=== PATIENT | male | born 1995 | race Caucasian/White ===

== ENCOUNTER 2018-10-16 06:55 | Emergency (ER) | payer BC ==
--- NOTE | 2018-10-16 08:14 | ER Document Report ---
ED Neck/Back Problem - General Chief Complaint: Back Pain Stated Complaint: BACK PAIN Time Seen by Provider: 10/16/18 07:40 Notes: 23-year-old male presents to the ER complaining of low back pain. The patient stated he is been bothering him for the last several days. The patient stated he has had back pain for several years. It comes and goes. 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 He has not established with a primary care physician yet after his new job. The patient complains of aching low back pain he rates as moderate to severe worse with movement. Denies any numbness or tending to his lower extremities denies any saddle paresthesias denies any problems with urination or defecation. Denies any weakness of his legs. Denies any new falls or trauma denies hematuria or dysuria. He describes the pain as aching. TRAVEL OUTSIDE OF THE [place] IN LAST 30 DAYS: No - Related Data Allergies/Adverse Reactions: No Known Allergies Allergy (Verified 10/16/18 07:34) Past Medical History - Social History Smoking Status: Unknown if Ever Smoked Family History: None Patient has suicidal ideation: No Patient has homicidal ideation: No Renal/ Medical History: Denies: Hx Peritoneal Dialysis Review of Systems - Review of Systems Constitutional: denies: Chills, Fever Genitourinary: denies: Dysuria, Flank pain, Hematuria Musculoskeletal: Back pain Neurological/Psychological: denies: Headaches -: Yes All other systems reviewed and negative Physical Exam - Vital signs Vitals: Temp Pulse Resp BP Pulse Ox 97.9 F 70 18 125/75 97 10/16/18 06:59 10/16/18 06:59 10/16/18 06:59 10/16/18 06:59 10/16/18 06:59 - Notes Notes: GENERAL_APPEARANCE: well_nourished, alert, cooperative, no_acute_distress, no_obvious_discomfort. VITALS: reviewed, see vital signs table. HEAD: no_swelling\tenderness on the head. EYES: PERRL, EOMI, conjunctiva_clear. NOSE: no_nasal_discharge. MOUTH: (-)decreased moisture. THROAT: no_tonsilar_inflammation, no_airway_obstruction. no_lymphadenopathy NECK: supple, no_neck_tenderness, (-)thyromegaly. BACK: 5 L4 paraspinal_back_tenderness. CHEST_WALL: no_chest_tenderness. LUNGS: no_wheezing, no_rales, no_rhonchi, (-)accessory muscle use, good air exchange bilateral. HEART: normal_rate, normal_rhythm, normal_S1, normal_S2, (-)S3, (-)S4, no_murmur, no_rub. ABDOMEN: normal_BS, soft, no_abd_tenderness, (-)guarding, (-)rebound, no_organomegaly, no_abd_masses. EXTREMITIES: strength 5/5 in all_extremities, good pulses in all_extremities, no_swelling\tenderness in the extremities, no_edema. SKIN: warm, dry, good_color, no_rash. MENTAL_STATUS: speech_clear, oriented_X_3, normal_affect, responds_appropriately to questions. NEURO: Neg Motor or Sensory Deficits on exam, CN 2-12 intact, DTR 2+ symmetric x 4, No cerbellar signs Course - Re-evaluation Re-evalutation: 10/16/18 08:12 Patient has a history of chronic back pain over the last several years he has had an exacerbation the last 2 days the patient will be placed on NSAIDs and Flexeril. The patient will need to establish a primary care physician patient does not have any saddle paresthesias no foot drop no motor weakness no bowel b ladder dysfunction or anything to suggest cauda equina syndrome. There is no history of IV drug abuse no fever no chills. Nothing red flag of concern. - Vital Signs Vital signs: Temp Pulse Resp BP Pulse Ox 97.9 F 70 18 125/75 97 10/16/18 06:59 10/16/18 06:59 10/16/18 06:59 10/16/18 06:59 10/16/18 06:59 Discharge - Discharge Clinical Impression: Low back pain Qualifiers: Chronicity: acute Back pain laterality: bilateral Sciatica presence: without sciatica Qualified Code(s): M54.5 - Low back pain Condition: Good Disposition: HOME, SELF-CARE Instructions: Low Back Pain ([facility]) Prescriptions: Cyclobenzaprine HCl [Flexeril 10 mg Tablet] 10 mg PO TIDP PRN #15 tab PRN Reason: Diclofenac Sodium [Voltaren] 75 mg PO BID PRN #20 tablet. PRN Reason: Pain Scale Of 5
[2018-10-16 08:33] VITALS: BP 128/70
== END 2018-10-16 08:33 | disposition home or self-care (01) ==
LOC: ER 06:55
DX: M54.5 Low back pain (principal)
CPT/HCPCS: 99283

== ENCOUNTER 2019-08-09 16:13 | Emergency (ER) | payer BC, OTHER ==
--- NOTE | 2019-08-09 17:08 | ER Document Report ---
ED Medical Screen (RME) - General Chief Complaint: Testicular Pain Stated Complaint: TESTICULAR PAIN Time Seen by Provider: 08/09/19 17:06 Mode of Arrival: Ambulatory Information source: Patient Notes: Is a 23-year-old male who feels as though he has a swollen lymph node to the left groin. Should be noted that he had a similar episode with a lymph node on the right groin that year and a half ago while stationed up in [place] and went up needing to be admitted with multiple tests to sort through the cause which has not really been identified. The discomfort to this area has brought h im to his knees just prior to arrival and his had to help him up. I greeted and performed a rapid initial assessment of this patient. Comprehensive ED assessment and evaluation of the patient, analysis of test results and completion of the medical decision making process will be conducted by additional ED providers. TRAVEL OUTSIDE OF THE [place] IN LAST 30 DAYS: No - Related Data Allergies/Adverse Reactions: No Known Allergies Allergy (Verified 10/16/18 07:34) Past Medical History Renal/ Medical History: Denies: Hx Peritoneal Dialysis Physical Exam - Vital signs Vitals: Temp Pulse Resp BP Pulse Ox 98.6 F 73 16 135/74 H 98 08/09/19 16:33 08/09/19 16:33 08/09/19 16:33 08/09/19 16:33 08/09/19 16:33 Course - Vital Signs Vital signs: Temp Pulse Resp BP Pulse Ox 98.6 F 73 16 135/74 H 98 08/09/19 16:33 08/09/19 16:33 08/09/19 16:33 08/09/19 16:33 08/09/19 16:33
[2019-08-09 17:42] LABS: ABSOLUTE BASOPHILS # (AUTO) 0.1 10^3/uL (0.0-0.2); ABSOLUTE EOSINOPHILS # (AUTO) 0.4 10^3/uL (0.0-0.6); ABSOLUTE LYMPHOCYTES (AUTO) 2.1 10^3/uL (0.5-4.7); ABSOLUTE MONOCYTES (AUTO) 0.7 10^3/uL (0.1-1.4); ABSOLUTE NEUT (AUTO) 3.8 10^3/uL (1.7-8.2); BASOPHILS % (AUTO) 0.7 % (0-2); EOSINOPHILS % (AUTO) 6.3 % (0-6); HEMOGLOBIN 15.9 g/dL (13.5-17.0); LYMPHOCYTES % (AUTO) 29.1 % (13-45); MEAN CORPUSCULAR HEMOGLOBIN 29.7 pg (27.0-33.4); MEAN CORPUSCULAR HGB CONC 34.5 g/dL (32.0-36.0); MEAN CORPUSCULAR VOLUME 86 fl (80-97); MONOCYTES % (AUTO) 9.8 % (3-13); PLATELET COUNT 281 10^3/uL (150-450); RED BLOOD COUNT 5.35 10^6/uL (4.35-5.55); RED CELL DISTRIBUTION WIDTH 12.7 % (11.5-14.0); SEGMENTED NEUTROPHILS % (AUTO) 54.1 % (42-78); TOTAL CELLS COUNTED % (AUTO) 100 %; WHITE BLOOD COUNT 7.1 10^3/uL (4.0-10.5)
[2019-08-09 17:46] LABS: AMORPHOUS SEDIMENT,URINE TRACE /HPF; APPEARANCE,URINE CLEAR; BILIRUBIN,URINE NEGATIVE (NEGATIVE); COLOR,URINE YELLOW; GLUCOSE, URINE NEGATIVE (NEGATIVE); KETONES,URINE NEGATIVE (NEGATIVE); LEUKOCYTE ESTERASE,URINE NEGATIVE (NEGATIVE); NITRITE,URINE NEGATIVE (NEGATIVE); PROTEIN,URINE NEGATIVE (NEGATIVE); URINE SPECIFIC GRAVITY 1.028; UROBILINOGEN,URINE NEGATIVE mg/dL (<2.0)
[2019-08-09 17:50] LABS: ALBUMIN 4.8 g/dL (3.5-5.0); ALKALINE PHOSPHATASE 68 U/L (38-126); ANION GAP 7 (5-19); ASPARTATE AMINO TRANSFERASE 32 U/L (17-59); BILIRUBIN,TOTAL 0.4 mg/dL (0.2-1.3); BLOOD UREA NITROGEN 18 mg/dL (7-20); CALCIUM 9.5 mg/dL (8.4-10.2); CARBON DIOXIDE 28 mmol/L (22-30); CHLORIDE 103 mmol/L (98-107); GLUCOSE 99 mg/dL (75-110); POTASSIUM 4.2 mmol/L (3.6-5.0); TOTAL PROTEIN 7.8 g/dL (6.3-8.2)
--- NOTE | 2019-08-09 18:48 | ER Document Report ---
ED GI/ - General Chief Complaint: Groin Pain Stated Complaint: TESTICULAR PAIN Time Seen by Provider: 08/09/19 17:06 Primary Care Provider: CAROLINA,KASEY [Primary Care Provider] - Follow up as needed Mode of Arrival: Ambulatory Notes: 23-year-old man presents to the emergency department with a complaint of pain in the left inguinal region. Apparently has been having pain for the past 3 days, today the pain became severe and he has presented to the emergency department for evaluation. He denies pain in the testicular region or penile discharge or dysuria. He notes pain in the groin area and denies a known injury. TRAVEL OUTSIDE OF THE [place] IN LAST 30 DAYS: No - Related Data Allergies/Adverse Reactions: No Known Allergies Allergy (Verified 10/16/18 07:34) Past Medical History - General Information source: Patient - Social History Smoking Status: Never Smoker Family History: None Patient has homicidal ideation: No Renal/ Medical History: Denies: Hx Peritoneal Dialysis Review of Systems - Review of Systems Notes: Constitutional: Negative for fever. HENT: Negative for sore throat. Eyes: Negative for visual changes. Cardiovascular: Negative for chest pain. Respiratory: Negative for shortness of breath. Gastrointestinal: Negative for abdominal pain, vomiting or diarrhea. Genitourinary: Negative for dysuria. Musculoskeletal: + left inguinal tenderness Skin: Negative for rash. Neurological: Negative for headaches, weakness or numbness. 10 point ROS negative except as marked above and in HPI. Physical Exam - Vital signs Vitals: Temp Pulse Resp BP Pulse Ox 98.6 F 73 16 135/74 H 98 08/09/19 16:33 08/09/19 16:33 08/09/19 16:33 08/09/19 16:33 08/09/19 16:33 - Notes Notes: PHYSICAL EXAMINATION: Physical Exam: General: Well-nourished well-developed 23-year-old male in no acute distress HEENT: NC/AT, pupils equal round and reactive to light, MM moist,nares clear, oropharynx clear, airway patent Neck: supple, no adenopathy, no masses. Good range of motion Lungs: clear, no wheezing, no rales no rhonchi CVS: Regular rate and rhythm no murmur gallop or rub Abdomen: Soft, active, nontender, no masses, no hepatosplenomegaly Ext: Tenderness left inguinal region with + small lymph nodes. Neuro: Alert and responsive, moving all 4 extremities on command, cranial nerves intact, no focal findings Skin: Intact no open lesions, no rash PSYCH: Normal mood, normal affect. Course - Re-evaluation Re-evalutation: 08/09/19 20:15 I have explained to the patient that because of the pain over the left femoral artery/inguinal area and pulsating discomfort, a CTA of the pelvis was ordered. You have voiced you will go to the [facility] for evaluation since you do not want to pay the cost at this hospital. It is your choice in your prerogative and have explained to the patient that his symptoms do not appear to be unstable. If they are worsening or if he has other concerns do not hesitate to return to the emergency department. The patient understands this plan and is leaving at this time. - Vital Signs Vital signs: Temp Pulse Resp BP Pulse Ox 98.4 F 74 16 137/93 H 98 08/09/19 20:15 08/09/19 20:15 08/09/19 20:15 08/09/19 20:15 08/09/19 20:15 - Laboratory Result Diagrams: 08/09/19 17:17 08/09/19 17:17 Laboratory results interpreted by me: 08/09/19 08/09/19 17:17 17:17 Eos % (Auto) 6.3 H Urine Blood SMALL H Discharge - Discharge Clinical Impression: Left groin pain Condition: Good Disposition: HOME, SELF-CARE Additional Instructions: You were seen in the emergency department for the left groin pain, question of femoral artery/sheath related pathology is unclear. Since you would prefer to go to the [facility] for definitive study you are being discharged from the emergency department to follow-up as an outpatient. You may use ibuprofen or Tylenol for pain Use a cold pack to the area of pain if needed If your symptoms are worsening and you want to be further evaluated you may return to the emergency department. HOME CARE INSTRUCTIONS & INFORMATION: Thank you for choosing us for your medical needs. We hope you're satisfied with the care you received. After you leave, you must properly care for your problem and, at the same time, observe its progress. Any condition can change. Some illnesses can change rapidly over hours or days. If your condition worsens, return to the Emergency Department or see your physician promptly. ABOUT YOUR X-RAYS AND EKG'S: If you had an EKG or X-rays taken, they have been read by the Emergency Physician. The X-rays and EKG's will also be read by a Radiologist or Vocational Technical Education Teacher within 24 hours. If discrepancies are noted, you will be notified by telephone. Please be certain the ED has a correct telephone number & address where you can be reached. Also, realize that some fractures or abnormalities do not show up on initial X-rays. If your symptoms continue, see your physician. ABOUT YOUR LABORATORY TEST: If you had laboratory tests, the results have been reviewed by the Emergency Physician. Some test results (for example cultures) may not be available for several days. You will be contacted if any test result shows you need additional treatment. Please be certain the ED has a correct telephone number and address where you can be reached. ABOUT YOUR MEDICATIONS: You will receive instructions on how to take your medicine on the prescription label you receive. Additional information may be provided by the Pharmacy. If you have questions afterwards, call the ED for clarification or further instructions. Some prescribed medications may cause drowsiness. Do not perform tasks such as driving a car or operating machinery without consulting your Pharmacist. If you feel you need a refill of pain medication, your condition will need re-evaluation. Please do not call for a refill of any medication. ABOUT YOUR SIGNATURE: Signature of this document acknowledges to followin. Understanding that you received emergency treatment and that you may be released before al medical problems are known or treated. Please be certain the ED has a correct phone number & address where you can be reached. 2. Acknowledgement that you will arrange for follow-up care as recommended. 3. Authorization for the Emergency Physician to provide information to your follow-up Physician in order to maximize your care. AT ANY TIME, IF YOUR SYMPTOMS CHANGE SIGNIFICANTLY OR WORSEN OR YOU DEVELOP NEW SYMPTOMS, RETURN TO THE EMERGENCY DEPARTMENT IMMEDIATELY FOR RE-EVALUATION. OUR GOAL IS TO PROVIDE EXCELLENT MEDICAL CARE! WE HOPE THAT WE HAVE MET YOUR EXPECTATIONS DURING YOUR EMERGENCY DEPARTMENT VISIT AND THAT YOU FEEL YOU HAVE RECEIVED EXCELLENT CARE! Referrals[facility] [Primary [facility] Provider] - Follow up as needed
[2019-08-09 20:17] VITALS: BP 137/93
== END 2019-08-09 20:17 | disposition home or self-care (01) ==
LOC: ER 16:13
DX: R10.32 Left lower quadrant pain (principal); N50.812 Left testicular pain
CPT/HCPCS: 36415; 80053; 81001; 85025; 99284